=== PATIENT | female | born 1955 | race Caucasian/White ===

== ENCOUNTER → 2020-09-20 13:37 | Outpatient (CLI) | payer MEDICARE, SELFPAY ==
--- NOTE | ~2020-09-20 | MM_ITS ---
EXAMINATION: MM screening kailyn BI w yoni HISTORY: Screening TECHNIQUE: Craniocaudal and mediolateral oblique 3-D tomosynthesis images were obtained and synthetic 2-D images were generated. CAD analysis was submitted and interpreted. COMPARISON: Comparison to multiple prior studies sequentially, with oldest reviewed study dated 12/2013. BREAST PARENCHYMAL COMPOSITION: Breast composed of scattered areas of fibroglandular density FINDINGS: There is a focal subareolar right breast mass partially obscured by dense fibroglandular ti ssue.. The left breast is stable without evidence for malignancy. There are no suspicious calcificati ons or architectural distortion. IMPRESSION: 1. Right breast subareolar mass measuring 5 mm. 2. Additional mammographic views and possible breast ultrasound are recommended. BI-RADS Category 0: Incomplete: Needs additional imaging evaluation. Reviewed, dictated and finalized at location A. IMPRESSION: 1. Right breast subareolar mass measuring 5 mm. 2. Additional mammographic views and possible breast ultrasound are recommended . BI-RADS Category 0: Incomplete: Needs additional imaging evaluation.
--- NOTE | ~2020-09-20 | DEXA_ITS ---
Bone Density Report Name: Ida Perea Age: 65 Sex: Female Ethnicity: White Date of : 1955 Indication: osteopenia; height loss; postmenopausal Referring Provider: Kel Alfaro Study: Bone densitometry was performed. Exam Date: September 20, 2020 Accession number: [id number] Bone Density: Region BMD T-score Z-score Classification AP Spine (L1-L4) 0.871 -1.6 0.3 Osteopenia Femoral Neck (Left) 0.779 -0.6 1.0 Normal Total Hip (Left) 0.914 -0.2 1.1 Normal Femoral Neck (Right) 0.716 -1.2 0.4 Osteopenia Total Hip (Right) 0.915 -0.2 1.1 Normal Total Hip Mean 0.915 -0.2 1.1 Normal World Health Organization criteria for BMD impression classify patients as: Normal (T-score at or above -1.0), Osteopenia (T-score between -1.0 and -2.5), or Osteoporosis (T-score at or below -2.5). 10-year Fracture Risk(1): Major Osteoporotic Fracture 8.3% Hip Fracture 0.8% Reported Risk Factors: [place] (), Neck BMD=0.716, BMI=32.6 (1) FRAX(R) Version 3.08. Fracture probability calculated for an untreated patient. Fracture probability may be lower if the patient has received treatment. Previous Exams: Region Exam Age BMD T-score BMD Change BMD Change Date g/cm2 vs Baseline vs Previous AP Spine(L1-L4) 09/20/2020 65 0.871 -1.6 0.042* -0.017 02/11/2016 60 0.888 -1.4 0.059* -0.014 12/22/2012 57 0.902 -1.3 0.073* 0.058* 12/06/2010 55 0.844 -1.8 0.015 -0.010 11/23/2009 54 0.853 -1.8 0.024* -0.022 11/17/2007 52 0.875 -1.6 0.046* -0.018 09/22/2005 50 0.893 -1.4 0.064* 0.064* 09/16/2004 49 0.829 -2.0 Total Hip(Left) 09/20/2020 65 0.914 -0.2 -0.047* -0.033* 02/11/2016 60 0.948 0.0 -0.014 -0.047* 12/22/2012 57 0.995 0.4 0.034* 0.060* 12/06/2010 55 0.935 -0.1 -0.027 -0.003 11/23/2009 54 0.937 0.0 -0.024 -0.024 11/17/2007 52 0.961 0.2 -0.001 -0.038* 09/22/2005 50 0.999 0.5 0.037* 0.037* 09/16/2004 49 0.961 0.2 Total Hip(Right) 09/20/2020 65 0.915 -0.2 0.000 -0.021 02/11/2016 60 0.936 0.0 0.021 0.017 12/22/2012 57 0.919 -0.2 0.004 -0.010 12/06/2010 55 0.929 -0.1 0.014 -0.004 11/23/2009 54 0.933 -0.1 0.018 0.020 11/17/2007 52 0.913 -0.2 -0.002 -0.055* 09/22/2005 50 0.968 0.2 0.053*
== END ==
PROVIDERS: PCP Family Medicine; Visit Provider Nurse Practitioner Family
DX: Z12.31 Encounter for screening mammogram for malignant neoplasm of breast (principal); Z78.0 Asymptomatic menopausal state; Z91.89 Other specified personal risk factors, not elsewhere classified; R92.8 Other abnormal and inconclusive findings on diagnostic imaging of breast; M85.88 Other specified disorders of bone density and structure, other site; M85.851 Other specified disorders of bone density and structure, right thigh
CPT/HCPCS: 77063; 77067; 77080

== ENCOUNTER 2020-10-03 09:45 | Outpatient (CLI) | payer MEDICARE, SELFPAY ==
--- NOTE | ~2020-10-03 | MMUS_ITS ---
EXAMINATION: MM diagnostic mammo unilat RT, US breast RT limited HISTORY: Follow-up right breast mass TECHNIQUE: Additional 3-D tomosynthesis images of the right breast were performed and synthetic 2-D i mages were generated. CAD analysis was submitted and interpreted. High resolution Limited right breas t ultrasound was performed. COMPARISON: 09/20/2020 BREAST PARENCHYMAL COMPOSITION: Breast composed of scattered areas of fibroglandular density. FINDINGS: MAMMOGRAPHIC FINDINGS: There is a persistent subareolar mass of the right breast on CC view. This is not clearly delineated on medial lateral or MLO views. ULTRASOUND: Right breast ultrasound: At 9:00 position of the subareolar location right breast there is a irregula r shaped hypoechoic mass measuring 7 x 5 x 4 mm. Mixed posterior attenuation. No internal vascularity . IMPRESSION: 1. Irregular shaped 7 mm subareolar mass of the right breast. 2. Ultrasound-guided right breast biopsy recommended. BI-RADS category 4, suspicious findings. Reviewed, dictated and finalized at location A. IMPRESSION: 1. Irregular shaped 7 mm subareolar mass of the right breast. 2. Ultrasound-guided right breast biopsy recommended. BI-RADS category 4, suspicious findings.
== END 2020-10-03 09:46 | disposition home or self-care (01) ==
PROVIDERS: PCP Family Medicine; Visit Provider Nurse Practitioner Family
DX: R92.8 Other abnormal and inconclusive findings on diagnostic imaging of breast (principal); N63.41 Unspecified lump in right breast, subareolar
CPT/HCPCS: 76642; 77065

== ENCOUNTER 2020-11-02 10:20 | Outpatient (CLI) | payer MEDICARE, SELFPAY ==
--- NOTE | ~2020-11-02 | US_ITS ---
EXAMINATION: Consultation US HISTORY: Patient presents for ultrasound-guided biopsy of indeterminate right breast mass TECHNIQUE: Limited right breast ultrasound is performed. FINDINGS: With real-time scanning, no distinct mass is identified for ultrasound-guided biopsy. This was discussed with the patient and a course of six-month follow-up was agreed upon. IMPRESSION: No ultrasound target identified for biopsy. Follow-up right diagnostic mammogram and ultrasound in si x months are recommended. BI-RADS category 3, probably benign findings. Reviewed, dictated and finalized at location A. IMPRESSION: No ultrasound target identified for biopsy. Follow-up right diagnostic mammogra m and ultrasound in six months are recommended. BI-RADS category 3, probably benign findings.
== END 2020-11-02 10:21 | disposition home or self-care (01) ==
LOC: ANHIMG 10:21
PROVIDERS: PCP Family Medicine; Visit Provider Nurse Practitioner Family
DX: N63.41 Unspecified lump in right breast, subareolar (principal); R92.8 Other abnormal and inconclusive findings on diagnostic imaging of breast
CPT/HCPCS: 99199

== ENCOUNTER → 2021-05-22 08:48 | Outpatient (CLI) | payer MEDICARE, SELFPAY ==
--- NOTE | ~2021-05-22 | MMUS_ITS ---
EXAMINATION: MM diagnostic kailyn BI w yoni, US breast RT limited HISTORY: Six-month follow-up for probably benign right breast mass TECHNIQUE: Craniocaudal, mediolateral, and mediolateral oblique 3-D tomosynthesis images of the breas ts were performed and synthetic 2-D images were generated. CAD analysis was submitted and interpreted . High resolution limited right breast ultrasound was performed. COMPARISON: 11/02/2020, 10/03/2020, 09/20/2020, 03/31/2017, 03/16/2017 BREAST PARENCHYMAL COMPOSITION: There are scattered areas of fibroglandular density. FINDINGS: MAMMOGRAPHIC FINDINGS: There is no evidence of suspicious mass, calcification, or architectural distortion in either breast to suggest malignancy. There has been no suspicious interval change. No mass is identified in the lizama bareolar aspect of the right breast as previously described. ULTRASOUND: There is no evidence of focal abnormal solid or cystic mass in the vicinity of the previously describ ed subareolar right breast mass. IMPRESSION: 1. No mammographic or sonographic evidence of malignancy. 2. Recommend routine screening mammography in one year. BI-RADS Category 1: Negative Reviewed, dictated and finalized at location A. LET DISTRIBUTOR IMPRESSION: 1. No mammographic or sonographic evidence of malignancy. 2. Recommend routine screening mammography in one year. BI-RADS Category 1: Negative
== END ==
PROVIDERS: PCP Family Medicine; Visit Provider Physician Assistant Medical
DX: R92.8 Other abnormal and inconclusive findings on diagnostic imaging of breast (principal)
CPT/HCPCS: 76642; 77062; 77066; G0279

== ENCOUNTER 2022-05-24 08:50 | Outpatient (CLI) | payer MEDICARE, SELFPAY ==
--- NOTE | ~2022-05-24 | US_ITS ---
US abdomen complete EXAMINATION: US Abdomen Complete INDICATION: Abdominal pain PROCEDURE: Realtime High Resolution abdomen ultrasound. COMPARISON: CT dated 11/07/2015 FINDINGS: Gallbladder within normal limits. No gallstones, pericholecystic fluid, gallbladder wall t hickening or biliary dilatation. Common bile duct measures 3.5 mm. Liver echotexture within normal limits without focal mass. Pancreas within normal limits. Pancreati c tail is obscured by bowel gas. Spleen is unremarkeable. Renal echotexture is within normal limits bilaterally without deforming mass or renal stone. There is mild right hydronephrosis. Right kidney m easures 10.8 cm. Left kidney measures 10.8 cm. Visualized aspects of the aorta and IVC are within normal limits. Portal vein is patent. No sonograph ic Sloan's sign indicated by the technologist. IMPRESSION: 1: Mild right hydronephrosis. Reviewed, dictated and finalized at location A. D EXECUTIVE
[2022-05-24 09:09] LABS: Basophils Absolute Auto 0.1 K/mm3 (0.0-0.1); Basophils Percent Auto 0.9 % (0.2-1.2); Eosinophils Absolute Auto 0.1 K/mm3 (0-0.3); Eosinophils Percent Auto 1.4 % (0-4.4); Hematocrit 39.5 % (37.0-47.0); Hemoglobin 13.1 g/dL (12.0-15.0); Immature Granulocyte Absolute 0.02 K/mm3 (0.00-0.031); Immature Granulocyte Percent A 0.3 % (0-0.5); Lymphocytes Percent Auto 29.3 % (18.3-44.2); Mean Corpuscular HGB Conc 33.2 g/dl (32-36); Mean Corpuscular Hemoglobin 31.5 pg (26-34); Mean Platelet Volume 10.2 fl (7.4-10.4); Monocytes Absolute Auto 0.7 K/mm3 (0.1-0.6); Monocytes Percent Auto 10.6 % (2.6-8.5); Neutrophils Absolute Auto 3.7 K/mm3 (1.3-6.7); Neutrophils Percent Auto 57.5 % (45.5-73.1); Platelet Count Result 240 k/mm3 (150-375); Red Blood Count 4.16 M/mm3 (4.2-5.4); Red Cell Distribution Width 13.3 % (11.5-14.5); White Blood Count 6.5 K/mm3 (4.5-10.0)
[2022-05-24 09:31] LABS: Alanine Aminotransferase 21 U/L (6-35); Albumin Level 4.6 g/dL (3.5-5.1); Alkaline Phosphatase 70 U/L (38-126); Amylase 86 U/L (30-110); Anion Gap 6 mmol/L (8-16); Aspartate Amino Transferase 23 U/L (14-36); Bilirubin,Total 0.6 mg/dL (0.2-1.3); Blood Urea Nitrogen 11 mg/dL (7-17); Calcium 9.4 mg/dL (8.4-10.2); Carbon Dioxide 26 mmol/L (22-30); Chloride 104 mmol/L (98-107); Estimated Glomerular Filt Rate > 60; Glucose 100 mg/dL (65-110); Lipase 62 U/L (23-300); Potassium 3.9 mmol/L (3.4-5.0); Sodium 136 mmol/L (137-145)
== END 2022-05-24 08:51 | disposition home or self-care (01) ==
PROVIDERS: PCP Family Medicine; Visit Provider Nurse Practitioner Family
DX: R10.9 Unspecified abdominal pain (principal)
CPT/HCPCS: 36415; 76700; 80053; 82150; 83690; 85025

== ENCOUNTER → 2022-07-28 11:10 | Outpatient (CLI) | payer MEDICARE, SELFPAY ==
--- NOTE | ~2022-07-28 | MM_ITS ---
EXAMINATION: MM screening kailyn BI w yoni HISTORY: Screening mammogram TECHNIQUE: Craniocaudal and mediolateral oblique 3-D tomosynthesis images were obtained and synthetic 2-D images were generated. CAD analysis was submitted and interpreted. COMPARISON: 05/22/2021 diagnostic right mammogram and limited right breast ultrasound 10/03/2020 right diagnostic mammogram and limited right breast ultrasound 09/20/2020 bilateral screening mammogram 03/31/2017 diagnostic left mammogram 03/16/2017 bilateral screening mammogram BREAST PARENCHYMAL COMPOSITION: There are scattered areas of fibroglandular density. FINDINGS: There is no evidence of suspicious mass, calcification, or architectural distortion to sugg est malignancy in either breast. There has been no suspicious interval change. IMPRESSION: 1. No mammographic evidence of malignancy. 2. Recommend routine screening mammography in one year. BI-RADS Category 1: Negative Reviewed, dictated and finalized at location A.
== END ==
PROVIDERS: PCP Family Medicine; Visit Provider Nurse Practitioner Family
DX: Z12.31 Encounter for screening mammogram for malignant neoplasm of breast (principal)
CPT/HCPCS: 77063; 77067

== ENCOUNTER 2023-10-07 13:11 | Outpatient (CLI) | payer MEDICARE, SELFPAY ==
--- NOTE | ~2023-10-07 | DEXA_ITS ---
Bone Density Report Name: JENISE PARKS Age: 68 Sex: Female Ethnicity: White Date of : 1955 Indication: osteopenia; height loss; Referring Provider: SERENITY, ALLEGRA Malik Study: Bone densitometry was performed. Exam Date: October 07, 2023 Accession number: [id number] Bone Density: Region BMD T-score Z-score Classification AP Spine (L1-L4) 0.867 -1.6 0.5 Osteopenia Femoral Neck (Left) 0.739 -1.0 0.8 Normal Total Hip (Left) 0.898 -0.4 1.2 Normal Femoral Neck (Right) 0.707 -1.3 0.5 Osteopenia Total Hip (Right) 0.898 -0.4 1.1 Normal Total Hip Mean 0.898 -0.4 1.2 Normal World Health Organization criteria for BMD impression classify patients as: Normal (T-score at or above -1.0), Osteopenia (T-score between -1.0 and -2.5), or Osteoporosis (T-score at or below -2.5). 10-year Fracture Risk(1): Major Osteoporotic Fracture 8.9% Hip Fracture 1.1% Reported Risk Factors: [place] (), Neck BMD=0.707, BMI=33.4 (1) FRAX(R) Version 3.08. Fracture probability calculated for an untreated patient. Fracture probability may be lower if the patient has received treatment. Previous Exams: Region Exam Age BMD T-score BMD Change BMD Change Date g/cm2 vs Baseline vs Previous AP Spine(L1-L4) 10/07/2023 68 0.867 -1.6 0.038* -0.003 09/20/2020 65 0.871 -1.6 0.042* -0.017 02/11/2016 60 0.888 -1.4 0.059* -0.014 12/22/2012 57 0.902 -1.3 0.073* 0.058* 12/06/2010 55 0.844 -1.8 0.015 -0.010 11/23/2009 54 0.853 -1.8 0.024* -0.022 11/17/2007 52 0.875 -1.6 0.046* -0.018 09/22/2005 50 0.893 -1.4 0.064* 0.064* 09/16/2004 49 0.829 -2.0 Total Hip(Left) 10/07/2023 68 0.898 -0.4 -0.063* -0.016 09/20/2020 65 0.914 -0.2 -0.047* -0.033* 02/11/2016 60 0.948 0.0 -0.014 -0.047* 12/22/2012 57 0.995 0.4 0.034* 0.060* 12/06/2010 55 0.935 -0.1 -0.027 -0.003 11/23/2009 54 0.937 0.0 -0.024 -0.024 11/17/2007 52 0.961 0.2 -0.001 -0.038* 09/22/2005 50 0.999 0.5 0.037* 0.037* 09/16/2004 49 0.961 0.2 Total Hip(Right) 10/07/2023 68 0.898 -0.4 -0.017 -0.018 09/20/2020 65 0.915 -0.2 0.000 -0.021 02/11/2016 60 0.936 0.0 0.021 0.017 12/22/2012 57 0.919 -0.2 0.004 -0.010 12/06/2010 55 0.929 -0.1 0.014 -0.00
--- NOTE | ~2023-10-07 | MM_ITS ---
EXAMINATION: MM screening kailyn BI w yoni HISTORY: Screening TECHNIQUE: Craniocaudal and mediolateral oblique 3-D tomosynthesis images were obtained and synthetic 2-D images were generated. CAD analysis was submitted and interpreted. COMPARISON: Comparison to multiple prior studies sequentially, with oldest reviewed study dated 02/17. BREAST PARENCHYMAL COMPOSITION: Not dense: There are scattered areas of fibroglandular density. FINDINGS: There is no evidence of suspicious mass, calcification, or architectural distortion to sugg est malignancy in either breast. There has been no suspicious interval change. IMPRESSION: 1. No mammographic evidence of malignancy. 2. Recommend routine screening mammography in one year. BI-RADS Category 1: Negative Reviewed, dictated and finalized at location A.
== END 2023-10-07 13:12 ==
PROVIDERS: PCP Family Medicine; Visit Provider Nurse Practitioner Family
DX: Z12.31 Encounter for screening mammogram for malignant neoplasm of breast (principal); M81.0 Age-related osteoporosis without current pathological fracture; E55.9 Vitamin D deficiency, unspecified; Z91.89 Other specified personal risk factors, not elsewhere classified; M85.88 Other specified disorders of bone density and structure, other site; M85.851 Other specified disorders of bone density and structure, right thigh
CPT/HCPCS: 77063; 77067; 77080

== ENCOUNTER 2024-12-08 00:48 | Day surgery (SDC) | payer MEDICARE, SELFPAY ==
[2024-11-23 15:05] VITALS: BMI 31.2
[2024-12-08 06:43] VITALS: BP 158/65; PULSE 58; RESP 17; TEMP 36.8; O2SAT 96; BMI 30.7
[2024-12-08] MEDS: LACTATED RINGERS 1,000 ML 150 ML IV CONT (06:53)
--- NOTE | 2024-12-08 07:31 | WPDANESEPPF ---
Anes - Initial Pre Proc Eval Procedure: Operation Date: 12/08/24 08:00 Proposed Procedures p Screening Colonoscopy - Dimas Belcher MD Date/Time: 12/08/24 07:31 Surgeon: Dimas Belcher MD Pre Op Diagnosis: screening Patient Data Age: 69 Gender: F Height: 1.55 m Weight: 73.7 kg Last Vital Signs Temp 98.2 F 12/08/24 06:43 Pulse 58 L 12/08/24 06:43 Resp 17 12/08/24 06:43 BP 158/65 H 12/08/24 06:43 Pulse Ox 96 12/08/24 06:43 O2 Del Method Room Air 12/08/24 06:43 Allergies Allergy/AdvReac Type Severity Reaction Status Date / Time Penicillins Allergy Unknown Rash Verified 12/08/24 06:42 sulfanilamide Allergy Unknown Hives Verified 12/08/24 06:42 Home Medications ?Medication ?Instructions ?Recorded ?Confirmed ?Type atorvastatin 20 mg tablet (Lipitor) 20 mg PO DAILY #90 tabs 07/25/24 11/23/24 Rx sodium,potassium,mag sulfates 17.5 See Rx Instructions PO .COMPLEX 11/23/24 Rx gram-3.13 gram-1.6 gram oral soln #354 mL (Suprep Bowel Prep Kit) Patient hx anesthesia problems: none Family hx anesthesia problems: none Results Review: All pre-operative results and documents have been reviewed as part of the pre-operative evaluation. [facility] Past Medical History Medical History Screening for colon cancer BMI 30.0-30.9,adult Adrenal cyst Irritable bowel syndrome without diarrhea Umbilical hernia without obstruction and without gangrene Surgical History Surgical History History of tubal ligation History of appendectomy Family History Family History Mother Family history of coronary artery disease Arthritis Grandparent Diabetes mellitus Father Mesothelioma Sibling Throat cancer Other Family history of gastrointestinal disorder Family history of malignant neoplasm of esophagus Social History Social History Smoking status: Never smoker Second hand tobacco smoke exposure: Yes Alcohol intake: never Substance use: never Substance use type: does not use Do You Feel Safe in your Home?: Yes Lack of Transportation: No Lack of Food: Never True Current Housing: I Have Housing Concerned About Future Housing: No Difficulty Paying Gas/Electric Bills: No Difficulty Paying for Meds: No Currently Unemployed: No Education: High School Diploma/GED Difficulty w/ Childcare or Family Care: No Living arrangements: alone Occupation/Education: retired Additional occupation/education comments: [employer] Gender identity (if verbalized by the patient): Female Spiritual care concerns: No Anes - Eval Final PreProcedure Day of Procedure 12/08/24 07:31 Patient weight: obese Lungs: normal air movement Airway: Mallampati scale class II Neurological: alert and oriented Last oral intake: >/= 8 hours ASA classification: II Emergent: no Anesthetic plan: proceed Anesthesia type and monitoring: general GIVS and standard monitoring Results Review: All pre-operative results and documents have been reviewed as part of the pre-operative evaluation. Active w chair yoga/exercises 4 x weekly, no cp or sob. Hyperlipidemia. Informed Consent: The patient's anesthetic plan and its attendant risks and benefits were discussed with the patient/family/POA. Questions were solicited and answers provided to the satisfaction of the patient/family/POA.
--- NOTE | 2024-12-08 07:54 | PM.IMHP ---
H&P: HPI History of Present Illness Date/Time: 12/08/24 07:54 Chief Complaint: Screening colonoscopy Narrative: This is the patient's 2nd colonoscopy. There are no GI symptoms and there is no family history of colorectal cancer. Review of Systems Review of Systems: All systems reviewed & are unremarkable except as noted in HPI and below PMFSH Past Medical History Medical History Screening for colon cancer BMI 30.0-30.9,adult Adrenal cyst Irritable bowel syndrome without diarrhea Umbilical hernia without obstruction and without gangrene Surgical History Surgical History History of tubal ligation History of appendectomy Family History Family History Mother Family history of coronary artery disease Arthritis Grandparent Diabetes mellitus Father Mesothelioma Sibling Throat cancer Other Family history of gastrointestinal disorder Family history of malignant neoplasm of esophagus Social History Social History Smoking status: Never smoker Second hand tobacco smoke exposure: Yes Alcohol intake: never Substance use: never Substance use type: does not use Do You Feel Safe in your Home?: Yes Lack of Transportation: No Lack of Food: Never True Current Housing: I Have Housing Concerned About Future Housing: No Difficulty Paying Gas/Electric Bills: No Difficulty Paying for Meds: No Currently Unemployed: No Education: High School Diploma/GED Difficulty w/ Childcare or Family Care: No Living arrangements: alone Occupation/Education: retired Additional occupation/education comments: [email or web address] Gender identity (if verbalized by the patient): Female Spiritual care concerns: No Meds Home Medications and Allergies Home Medications ?Medication ?Instructions ?Recorded ?Confirmed ?Type atorvastatin 20 mg tablet (Lipitor) 20 mg PO DAILY #90 tabs 07/25/24 11/23/24 Rx sodium,potassium,mag sulfates 17.5 See Rx Instructions PO .COMPLEX 11/23/24 Rx gram-3.13 gram-1.6 gram oral soln #354 mL (Suprep Bowel Prep Kit) Allergies Allergy/AdvReac Type Severity Reaction Status Date / Time Penicillins Allergy Unknown Rash Verified 12/08/24 06:42 sulfanilamide Allergy Unknown Hives Verified 12/08/24 06:42 Vital Signs Vital Signs - 24 hr 12/08/24 06:43 Temperature 98.2 F Pulse Rate 58 L Respiratory Rate 17 Blood Pressure 158/65 H Pulse Oximetry 96 Oxygen Delivery Room Air Exam Const: General: cooperative and healthy appearing Resp: Effort & Inspection: normal respiratory effort and able to speak in complete sentences Auscultation: clear to auscultation bilaterally Cardio: Rate: regular rate Rhythm: regular rhythm GI: Inspection: normal to inspection GI Palp: No No hepatosplenomegaly present Auscultation: normal bowel sounds Rectal Exam: deferred Skin: General skin exam: normal color Psych: Appearance: grossly normal Mental Status: mental status grossly normal Assessment and Plan Assessment and plan (1) Screening for colon cancer: Code(s): Z12.11 - Encounter for screening for malignant neoplasm of colon Status: Acute Assessment and Plan: The patient is deemed a good candidate for the procedure. Consent signed. Will proceed.
[2024-12-08 08:21] VITALS: BP 105/52; PULSE 55; RESP 15; O2SAT 95
[2024-12-08 08:31] VITALS: BP 109/58; PULSE 53; RESP 15; O2SAT 95
[2024-12-08 08:41] VITALS: BP 113/63; PULSE 52; RESP 14; O2SAT 95
== END 2024-12-08 09:00 | disposition home or self-care (01) ==
PROVIDERS: PCP Family Medicine; Referring Provider Nurse Practitioner Adult Health; Visit Provider Internal Medicine Gastroenterology
PROC: 0DJD8ZZ Inspection of Lower Intestinal Tract, Via Natural or Artificial Opening Endoscopic (ICD-10-PCS; CPT 45378; principal; 2024-12-08 08:00)
DX: Z12.11 Encounter for screening for malignant neoplasm of colon (principal); K58.9 Irritable bowel syndrome, unspecified; E66.9 Obesity, unspecified; Z68.30 Body mass index [BMI] 30.0-30.9, adult; Z98.890 Other specified postprocedural states; Z98.51 Tubal ligation status; Z87.19 Personal history of other diseases of the digestive system; Z80.0 Family history of malignant neoplasm of digestive organs; Z80.1 Family history of malignant neoplasm of trachea, bronchus and lung; Z80.2 Family history of malignant neoplasm of other respiratory and intrathoracic organs; Z82.49 Family history of ischemic heart disease and other diseases of the circulatory system
CPT/HCPCS: G0105; J2003; J2704; J7120